=== PATIENT | female | born 1940 | race Caucasian/White ===

== ENCOUNTER 2016-10-08 12:49 | Day surgery (SDC) | payer MEDICARE, OTHER ==
[~2016-10-08 12:49] MED LIST: ALLO100T PO; CLON0.5T PO; CYCL-36 PO; ESTR0.752 PO; FURO1TAB93 PO; GABA300C3 PO; LEXA5SOL PO; MAXZ25 PO; POTA-267 PO; SIMV20 PO
[2016-10-08 13:27] VITALS: BP 134/81; PULSE 97; RESP 18; TEMP 97.3; O2SAT 96
[2016-10-08 14:00] VITALS: BP 146/84; PULSE 95; RESP 20; TEMP 98.3; O2SAT 97
[2016-10-08 14:15] VITALS: BP 148/86; PULSE 94; RESP 20; O2SAT 93
--- NOTE | 2016-10-08 15:23 | RADRPT ---
EXAM DATE/TIME: 10/08/2016 13:21 [facility] COMPARISON: No previous studies available for comparison. EXTERNAL COMPARISON: [facility], PET/CT - HEAD & NECK CA, Sep 21 2014. INDICATIONS : Palpable lump, right parotid. History low grade lymphoma. MEDICAL HISTORY : Hypercholesterolemia. Lymphoma. Arthritis. Atrial fibrillation. SURGICAL HISTORY : Tonsillectomy. Hysterectomy. Tubal ligation. Breast augmentation. Lymph node biopsy. Right rotator cu ff repair. ENCOUNTER: Initial ACUITY: 1 month PAIN SCORE: 0/10 LOCATION: Right parotid gland. ORGAN: Right salivary gland SPECIMENS: Three core specimen(s) submitted for pathologic evaluation. DEVICE: 18 gauge Bio Pince needle Post procedure scanning reveals no hematoma or other complication. The possibility does exist that the tissue obtained will be non-diagnostic. If the sample is non-rhonda gnostic a repeat biopsy or surgical biopsy may need to be performed. TECHNIQUE: 1. Ultrasound guidance for needle biopsy. 2. Needle biopsy. The risks, benefits, and alternatives to ultrasound guided needle biopsy were explained to the patien t in detail including the risk of bleeding and infection. Written and verbal informed consent was ob tained. With the patient on the ultrasound table, images were obtained. Overlying skin was prepped and drape d in the usual sterile fashion and Lidocaine was utilized as a local anesthetic. Under direct ultrasound guidance 3 cores were obtained of the mass in the parotid. The patient tolerated the procedure well and left the ultrasound suite in stable condition. CONCLUSION: Uncomplicated ultrasound guided needle biopsy. Pathology is pending. Dakota Fuentes MD FACR on October 08, 2016 at 15:19 Board Certified Radiologist. This report was verified electronically.
[2016-10-08] MEDS ORDERED: LIDOCAINE HCL 1% PF 30 ML VIAL ONE (15:29)
== END 2016-10-08 14:37 | disposition home or self-care (01) ==
LOC: HRAD 12:49 → HRIP 12:53 → HRAD 14:37
PROVIDERS: ATTEND Internal Medicine Hematology & Oncology
DX: C82.91 Follicular lymphoma, unspecified, lymph nodes of head, face, and neck (principal); R93.8 Abnormal findings on diagnostic imaging of other specified body structures; Z85.72 Personal history of non-Hodgkin lymphomas; I48.91 Unspecified atrial fibrillation
CPT/HCPCS: 42400; 76942; 88184; 88185; 88305; 88307; 88333

== ENCOUNTER 2017-08-27 07:49 | Day surgery (SDC) | payer MEDICARE ==
[~2017-08-27] VITALS: Ht 165.1 cm; Wt 84.1 kg
[2017-08-27] MEDS ORDERED: LIDOCAINE 1%/EPINEPHrine 1:100,000 SOLN 50 ML VIAL ONE (08:00)
[2017-08-27 08:03] VITALS: BP 157/80; PULSE 100; RESP 20; TEMP 97.9; O2SAT 93
[2017-08-27] MEDS ORDERED: CLON0.5T PO (08:03)
[2017-08-27] MEDS ORDERED: ESCI20TA PO (08:03)
[2017-08-27] MEDS ORDERED: ESTR0.752 (08:10)
[2017-08-27] MEDS ORDERED: FLEC1TAB8 PO (08:10)
[2017-08-27] MEDS ORDERED: CRANCAP2 PO (08:10)
[2017-08-27] MEDS ORDERED: FURO40TA PO (08:10)
[2017-08-27] MEDS ORDERED: ALLO100T PO (08:10)
[2017-08-27] MEDS ORDERED: KLOR10TA PO (08:10)
[2017-08-27] MEDS ORDERED: SIMV20TA PO (08:10)
[2017-08-27] MEDS ORDERED: TRIA37.53 PO (08:10)
[2017-08-27] MEDS ORDERED: CYAN1TAB24 PO (08:10)
[2017-08-27] MEDS ORDERED: DOCU1CAP66 PO (08:10)
[2017-08-27] MEDS ORDERED: CYCL10TA PO (08:10)
[2017-08-27] MEDS ORDERED: SODIUM CHLOR 0.9% 1000 ML IV SCH (08:15)
[2017-08-27] MEDS ORDERED: MIDAZOLAM HCL 2 MG/2 ML VIAL ONE (09:17)
[2017-08-27 10:05] VITALS: BP 115/65; PULSE 108; RESP 16; TEMP 97.9; O2SAT 92
--- NOTE | 2017-08-27 10:10 | RADRPT ---
EXAM DATE/TIME: 08/27/2017 09:27 [facility] COMPARISON: No previous studies available for comparison. INDICATIONS : Left chest wall mass SEDATION TIME: 30 minutes BIOPSY SITE: Left chest wall MEDICATION(S): 1.) 3 mg midazolam (Versed) IV 2.) 150 mcg fentanyl (Sublimaze) IV DEVICE(S): 1.) 18 gauge Tem[place] core biopsy needle MEDICAL HISTORY : Lymphoma. SURGICAL HISTORY : Hysterectomy. ENCOUNTER: Initial ACUITY: 1 day PAIN SCORE: 0/10 LOCATION: Left posterior pleura/chest wall A total of two core specimen(s) were obtained and sent to the laboratory for pathologic evaluation. PROCEDURE: 1. CT guided chest wall, left biopsy. Prior to the procedure informed consent was obtained. Any appropriate prior imaging studies were rev iewed. Using automated exposure control and adjustment of the mA and/or kV according to patient size, radiat ion dose was kept as low as reasonably achievable to obtain optimal diagnostic quality images. DICOM format image data is available electronically for review and comparison. The site was prepped in a sterile fashion. Full sterile technique was used, including cap, mask, tessa rile gloves and gown and a large sterile sheet. Hand hygiene and 2% chlorhexidine and/or betadine/al cohol prep was utilized per protocol for cutaneous antisepsis. The skin and subcutaneous tissues wer e infiltrated with local anesthetic solution. With CT guidance the previously identified target was localized. Biopsy was performed using the presc ribed needle as above. Adequate hemostasis was obtained with compression at the puncture site. Follow-up CT scan reveals no hemorrhage. The patient tolerated the procedure well and there were no complications. The patient was returned to the Radiology Outpatient Unit in stable condition. CONCLUSION: Uncomplicated CT guided biopsy. Shlomo Masterson MD on August 27, 2017 at 10:07 Board Certified Radiologist. This report was verified electronically.
[2017-08-27 10:20] VITALS: BP 112/66; PULSE 101; RESP 18; O2SAT 91
[2017-08-27 10:50] VITALS: BP 105/60; PULSE 103; RESP 18; O2SAT 91
[2017-08-27 11:20] VITALS: BP 94/63; PULSE 100; RESP 16; O2SAT 92
[2017-08-27 11:50] VITALS: BP 128/67; PULSE 100; RESP 18; O2SAT 92
== END 2017-08-27 12:20 | disposition home or self-care (01) ==
LOC: HRAD 07:49 → HRIP 07:49 → HRAD 12:20
PROVIDERS: ATTEND Internal Medicine Hematology & Oncology
DX: R22.2 Localized swelling, mass and lump, trunk (principal); C85.99 Non-Hodgkin lymphoma, unspecified, extranodal and solid organ sites
CPT/HCPCS: 20206; 77012; 88184; 88185; 88307; 99152; 99153; J2250; J3010; 88305

== ENCOUNTER 2017-09-07 08:18 | Day surgery (SDC) | payer MEDICARE ==
[~2017-09-07] VITALS: Ht 165.1 cm; Wt 84.1 kg
[~2017-09-07 08:18] MED LIST changes: +CRANCAP2 PO; +CYAN1TAB24 PO; -CYCL-36 PO; +CYCL10TA PO; +DOCU1CAP66 PO; +ESCI20TA PO; +ESTR0.752; -ESTR0.752 PO; +FLEC1TAB8 PO; -FURO1TAB93 PO; +FURO40TA PO; -GABA300C3 PO; +KLOR10TA PO; -LEXA5SOL PO; -MAXZ25 PO; -POTA-267 PO; -SIMV20 PO; +SIMV20TA PO; +TRIA37.53 PO
[2017-09-07 09:33] VITALS: BP 168/90; PULSE 90; RESP 16; TEMP 98.1
[2017-09-07] MEDS ORDERED: VANCOMYCIN 1000 MG/NS 250 ML - implanted port/tunneled catheter IV SCH ×2 (09:45)
[2017-09-07] MEDS ORDERED: SODIUM CHLORIDE 0.9% 1000 ML IV SCH (09:45)
[2017-09-07] MEDS ORDERED: POVIDONE IODINE 5% (ANTISEPSIS KIT) 4 APPLICATIONS EACH NARE SCH (09:45)
[2017-09-07] MEDS ORDERED: CHLORHEXIDINE GLUCONATE 2 % 1 PACK (2 CLOTHS) TOPICAL SCH (09:45)
[2017-09-07] MEDS ORDERED: MUPIROCIN 2% OINT 1 APPLIC/GM SYR EACH NARE SCH (09:45)
[2017-09-07 09:51] LABS: AUTOMATED NEUTROPHIL # 2.8 TH/MM3 (1.8-7.7); BASOPHIL % 0.4 % (0.0-2.0); EOSINOPHIL % 1.3 % (0.0-4.0); HEMATOCRIT 38.6 % (35.0-46.0); HEMOGLOBIN 13.1 GM/DL (11.6-15.3); LYMPH % 10.5 % (9.0-44.0); LYMPHOCYTE # 0.4 TH/MM3 (1.0-4.8); MEAN CELL VOLUME 92.6 FL (80.0-100.0); MEAN CORPUSCULAR HEMOGLOBIN 31.5 PG (27.0-34.0); MEAN PLATELET VOLUME 7.4 FL (7.0-11.0); MONO % 9.4 % (0.0-8.0); MONOCYTE # 0.3 TH/MM3 (0-0.9); NEUT % 78.4 % (16.0-70.0); PLATELET COUNT 213 TH/MM3 (150-450); RED BLOOD COUNT 4.17 MIL/MM3 (4.00-5.30); RED CELL DISTRIBUTION WIDTH 16.5 % (11.6-17.2); WHITE BLOOD COUNT 3.5 TH/MM3 (4.0-11.0)
[2017-09-07 09:58] LABS: PROTHROMBIN TIME - PATIENT 9.9 SEC (9.8-11.6)
[2017-09-07] MEDS ORDERED: MIDAZOLAM HCL 2 MG/2 ML VIAL ONE ×2 (10:19)
[2017-09-07] MEDS ORDERED: LIDOCAINE 1%/EPINEPHrine 1:100,000 SOLN 30 ML VIAL ONE (10:35)
--- NOTE | 2017-09-07 11:29 | PD.RAD ---
Post Procedure Progress Note Pre Procedure Diagnosis: (1) Non-Hodgkin lymphoma Post Procedure Diagnosis: (1) Non-Hodgkin lymphoma Procedure Date: Sep 07, 2017 Supervising Radiologist: Hamlet Martino JR Proceduralist/Assist: Garrett Leyva, RT(R), Merly Goins RT(R) Anesthesia: Conscious Sedation Plan of Activity Patient to Unit: [facility] See PACS Report for procedural detail/treatment Central Venous Access Device Procedure 1 Right Internal Jugular Infusaport single lumen [place]: 8 Findings: Port in good position and functions well. OK to use. Plan F/U with IR or a physician in 10-14 days for a site check Jr. Gunner,Hamlet Grullon MD Sep 07, 2017 11:29
[2017-09-07 11:30] VITALS: BP 123/64; PULSE 96; RESP 18; TEMP 97.9; O2SAT 96
[2017-09-07] MEDS ORDERED: SODIUM CHLORIDE 0.9% FLUSH 10 ML FLUSH IVF PRN (11:30)
--- NOTE | 2017-09-07 11:42 | RADRPT ---
EXAM DATE/TIME: 09/07/2017 10:19 [facility] COMPARISON: No previous studies available for comparison. INDICATIONS : Patient presents with non hodgkins lymphoma in need of port placement for chemotherapy treatment. MEDICAL HISTORY : Lymphoma Pleural effusion ETOH Afib Anxiety SURGICAL HISTORY : Bilat breast implants Toe sx Tonsillectomy ENCOUNTER: Initial ACUITY: 1 month PAIN SCORE: 0/10 LOCATION: N/A FLUORO TIME: 1.1 minutes IMAGE SERIES: 0 SEDATION TIME: 15 minutes ACCESS: Right internal jugular vein SEDATION: 1.) 4 mg midazolam (Versed) IV 2.) 200 mcg fentanyl (Sublimaze) IV Prophylactic antibiotics were administered with appropriate pre-procedure timing. Vancomycin within 2 hours of procedure, Ancef (or alternative) within 1 hour of procedure. DEVICE: 1. 8 [place] single lumen Xcela Power PICC PROCEDURE : 1. Continuous pulse oximetry and EKG monitoring. 2. Intravenous conscious sedation. 3. Ultrasound guidance for venous access. 4. Fluoroscopic guided implantable central venous port placement. The patient was placed supine. The neck was prepped in sterile fashion. Full sterile technique was u sed, including cap, mask, sterile gloves and gown, and a large sterile sheet. Hand hygiene and 2% ch lorhexidine Betadine was utilized per protocol for cutaneous antisepsis with appropriate dry time for site. Sterile gel and sterile probe cover were utilized for ultrasound guidance. The skin and sub cutaneous tissues were infiltrated with local anesthetic solution. Under direct ultrasound guidance, central venous access was accomplished in the targeted vessel. The ultrasound images depicting access guidance were stored and saved to PACS for permanent record. A s ubcutaneous pocket was created using blunt dissection. The port was introduced to the pocket. The c atheter tubing was fed through a subcutaneous tunnel to the venotomy site. The catheter tubing was c ut to a suitable length and then was introduced through a valved Peel-Away sheath and positioned with catheter tubing tip at the cavo-atrial junction level. The pocket incision was closed with subcutic ular Vicryl suture. Steri-Strips were applied. The port was flushed and locked with heparin solutio n per protocol. Sterile dressing was applied to the site. The patient tolerated the procedure well. Conscious sedation was performed with the prescribed dosages and duration as above in the presence of an independent trained radiology nurse to assist in the monitoring of the patient. EKG and oximetry remained stable throughout the procedure. The patient tolerated the procedure well and there were no complications. The patient was sent to post anesthesia recovery in stable condition. CONCLUSION: Uncomplicated ultrasound and fluoroscopic guided implanted central venous port catheter placement as described in detail above. An 8 [place] Power port was placed. Hamlet Martino Jr., MD on September 07, 2017 at 11:39 Board Certified Radiologist. This report was verified electronically.
[2017-09-07 11:45] VITALS: BP 125/71; PULSE 89; RESP 18; O2SAT 98
[2017-09-07 12:15] VITALS: BP 135/87; PULSE 94; RESP 18; O2SAT 98
[2017-09-07 12:45] VITALS: BP 109/74; PULSE 90; RESP 18; O2SAT 92
== END 2017-09-07 13:31 | disposition home or self-care (01) ==
LOC: HROP 08:18 → HRIP 08:22 → HROP 13:31
PROVIDERS: ATTEND Internal Medicine Hematology & Oncology
DX: C85.99 Non-Hodgkin lymphoma, unspecified, extranodal and solid organ sites (principal); J90 Pleural effusion, not elsewhere classified; I48.91 Unspecified atrial fibrillation; F41.9 Anxiety disorder, unspecified; Z01.818 Encounter for other preprocedural examination
CPT/HCPCS: 36561; 76937; 77001; 85025; 85610; 85730; 99152; C1788; J1642; J2250; J3010; J3370; J7030; J7050